=== PATIENT | male | born 1975 | race Caucasian/White ===

== ENCOUNTER 2020-11-09 09:12 | Emergency (ER) | payer MEDICAID ==
[~2020-11-09] VITALS: Ht 172.7 cm; Wt 89.0 kg
[~2020-11-09 09:12] MED LIST: LISI20TA31 PO
[2020-11-09 09:21] VITALS: BP 131/74
[2020-11-09] MEDS ORDERED: KETOROLAC 60MG/2ML VIAL IM ONE (09:45)
[2020-11-09] MEDS ORDERED: IBUP-2029 MT (10:51)
== END 2020-11-09 11:33 | disposition home or self-care (01) ==
LOC: ER 09:12
DX: M25.561 Pain in right knee (principal); I10 Essential (primary) hypertension
CPT/HCPCS: 73560; 96372; 99283; J1885